=== PATIENT | male | born 1945 | race Caucasian/White ===

== ENCOUNTER → 2016-09-16 | Outpatient (CLI) | payer OTHER ==
[~2016-09-16] MED LIST: AMOX875T PO; FLAX1CAP11 PO; MULT-1093 PO; OMEG10007 PO
[2016-09-16 13:34] LABS: ESTIMATED AVERAGE GLUCOSE 143 mg/dl; HA1C FLAG Normal (Normal)
[2016-09-16 14:45] LABS: BLOOD UREA NITROGEN 12 mg/dl (7-18); BUN/CREATININE RATIO 14.9 (10-20); CARBON DIOXIDE 27 mmol/L (21-32); CHLORIDE 105 mmol/L (98-107); CHOLESTEROL 152 mg/dl (0-200); CREATININE 0.81 mg/dl (0.60-1.40); GLUCOSE 133 mg/dl (70-99); POTASSIUM 4.1 mmol/L (3.5-5.1); SODIUM 139 mmol/L (136-145); TRIGLYCERIDES 160 mg/dl (0-150); VERY LOW DENSITY LIPOPROT CALC 32 mg/dl
[2016-09-16 14:50] LABS: CHOLESTEROL/HDL RATIO 3.5; HDL CHOLESTEROL 44 mg/dl
[2016-09-16 15:09] LABS: CALCIUM 9.6 mg/dl (8.5-10.1)
== END | disposition home or self-care (01) ==
LOC: C.LABSPEC 12:41
PROVIDERS: ATTEND Internal Medicine
DX: Z00.01 Encounter for general adult medical examination with abnormal findings (principal); E11.65 Type 2 diabetes mellitus with hyperglycemia

== ENCOUNTER → 2016-09-20 | Outpatient (CLI) | payer OTHER ==
[2016-09-20 16:22] LABS: RATIO 310.7 mcg/mg (0-30.0)
== END | disposition home or self-care (01) ==
LOC: C.LABSPEC 14:54
PROVIDERS: ATTEND Internal Medicine
DX: E11.65 Type 2 diabetes mellitus with hyperglycemia (principal)

== ENCOUNTER 2016-12-23 17:33 | Emergency (ER) | payer OTHER ==
[~2016-12-23] VITALS: Ht 190.5 cm; Wt 129.4 kg
[2016-12-23 17:39] VITALS: Ht 190.5 cm; Wt 129.4 kg
[2016-12-23] MEDS ORDERED: CEFTRIAXONE SOD INJ 1 GM ADDVIAL IV STA (17:50)
[2016-12-23 18:25] LABS: BASO % 0.2 %; BASO ABS # 0.03 K/uL (0-0.2); COMPLETE YES; EOS % 0.3 %; HEMATOCRIT 40.8 % (42-52); IG% 0.2 %; LYMPH ABS # 0.48 K/uL (1.2-3.4); MEAN CELL VOLUME 84.6 fL (80-100); MEAN CORPUSCULAR HEMOGLOBIN 31.1 pg (25-34); MEAN CORPUSCULAR HGB CONC 36.8 g/dl (32-36); MONO % 6.4 %; NEUT % 88.9 %; PLATELET COUNT 165 K/uL (130-400); RED BLOOD COUNT 4.82 M/uL (4.7-6.1); WHITE BLOOD COUNT 12.12 K/uL (4.8-10.8)
[2016-12-23 18:41] LABS: BUN/CREATININE RATIO 12.7 (10-20); CALCIUM 9.4 mg/dl (8.5-10.1); CREATININE 0.92 mg/dl (0.60-1.40); POTASSIUM 3.6 mmol/L (3.5-5.1)
--- NOTE | 2016-12-23 18:41 | DIAGNOSTIC IMAGING REPORT ---
RIGHT LOWER EXTREMITY VENOUS DOPPLER HISTORY: Right leg swelling. COMPARISON STUDY: None. FINDINGS: There is normal compressibility, flow, and augmentation within the right lower extremity deep venous system. Prominent right inguinal lymph nodes. Dominant lymph node measures 4.8 x 1.6 cm. However, these demonstrate a thin cortex and normal fatty hilum. IMPRESSION: No DVT within the right lower extremity. Prominent right inguinal lymph nodes. Dominant lymph node measures 4.8 x 1.6 cm. However, these demonstrate a thin cortex and normal fatty hilum. Therefore, these favor benign lymph nodes. Electronically signed by: Kash Hammer M.D. 12/23/2016 6:39 PM Dictated Date/Time: 12/23/2016 6:38 PM
[2016-12-23 19:09] VITALS: TEMP 37.4
[2016-12-23] MEDS ORDERED: MULT-1093 PO (19:23)
[2016-12-23] MEDS ORDERED: FLAX1CAP11 PO (19:23)
[2016-12-23] MEDS ORDERED: OMEG10007 PO (19:23)
[2016-12-23] MEDS ORDERED: AMOX875T PO (19:47)
[2016-12-23] MEDS ORDERED: ACETAMINOPHEN 500 MG TAB PO ONE (19:48)
[2016-12-23 19:55] VITALS: BP 156/88; PULSE 113; O2SAT 96
[2016-12-23] MEDS ORDERED: AMOXICILLIN/CLAVULANATE TAB 875 MG TAB PO ONE (20:00)
--- NOTE | 2016-12-23 21:42 | EMERGENCY ROOM VISIT NOTE ---
History Report prepared by Nneka: Pete Regan Under the Supervision of: Dr. Mike Babb M.D. First contact with patient: 17:40 Chief Complaint: FEVER Stated Complaint: FEVERISH,JUST GOT OVER CELLUITIS History of Present Illness The patient is a 71 year old male who presents to the Emergency Room with complaints of a persistent feeling of being feverish that started yesterday. He says that he had 2 bouts of right lower leg cellulitis, the first one being in July, and the second one being last month. The patient states that he was treated in the [facility] for 3 days during the first bout, and was treated with IV bags. He says that he was treated by his primary care physician during the second bout, and was given a round of Keflex. The patient notes that he has not noticed quite as much improvement with the Keflex as much as he did from the IV bags. He says that he felt great 2 days ago, but yesterday, he started feeling fatigued and feverish. The patient adds that his right leg is starting to get more red and a bit more swollen again. He says that he has had minimal intermittent stinging around the cellulitic area. He adds that he has had some intermittent phlegm in his throat too. Per the nursing staff, the patient's temperature was 98.9 upon arrival, but the patient did take 4 Ibuprofen earlier today. The patient did not take his temperature earlier today. Pt denies LOC, headache, chills, diaphoresis, visual changes, neck pain, chest pain, breathing difficulties, nausea, vomiting, abdominal pain, back pain , melena, hematochezia, urinary symptoms, numbness, weakness, lymphadenopathy, or other complaints. Source of History: patient, nursing staff Onset: Yesterday Position: other (global - feeling feverish) Symptom Intensity: 98.9 upon arrival Timing: other (persistent) Associated Symptoms: + fatigue Note: Associated symptoms: Right lower leg redness, swelling, and bit of stinging. Intermittent phlegm in throat. Review of Systems See HPI for pertinent positives and negatives. A total of ten systems were reviewed and were otherwise negative. Past Medical & Surgical Medical Problems: (1) Cellulitis (2) Cellulitis of leg, right (3) Diabetes Family History Cancer Hypertension Social History Smoking Status: Former Smoker Marital Status: Housing Status: lives with family Occupation Status: retired Current/Historical Medications Scheduled Amoxicillin & Pot Clavulanate (Augmentin 875-125 mg), 875 MG PO BID Fish Oil (Wellington-3), 1 CAP PO DAILY Flaxseed (Linseed) (Flax Seed Oil), 1 CAP PO DAILY Multiple Vitamins W/ Minerals (Centrum Silver 50+Men), 1 TAB PO DAILY Allergies Coded Allergies: No Known Allergies (Unverified , 12/23/16) Physical Exam Vital Signs Date Time Temp Pulse Resp B/P (MAP) Pulse Ox O2 Delivery O2 Flow Rate FiO2 12/23/16 19:55 113 18 156/88 96 Room Air 12/23/16 19:09 37.4 12/23/16 18:50 109 20 173/84 96 Room Air 12/23/16 17:39 37.2 126 20 194/93 97 Room Air Physical Exam GENERAL: Awake, alert, well-appearing, in no distress HENT: Normocephalic, atraumatic. Oropharynx unremarkable. EYES: Normal conjunctiva. Sclera non-icteric. NECK: Supple. No nuchal rigidity. FROM. No JVD. RESPIRATORY: Clear to auscultation. CARDIAC: Regular rate, normal rhythm. Extremities warm and well perfused. Pulses equal. ABDOMEN: Soft, non-distended. No tenderness to palpation. No rebound or guarding. No masses. RECTAL: Deferred. MUSCULOSKELETAL: Chest examination reveals no tenderness. The back is symmetrical on inspection without obvious abnormality. There is no CVA tenderness to palpation. No joint edema. LOWER EXTREMITIES: Right leg is larger than left leg. Right leg is warm, tender , red, and swollen from ankle to below the knee. Equivocal Homans sign on right side. Tinea pedis between the 4th and 5th toe on the right side. NEURO: Normal sensorium. No sensory or motor deficits noted. SKIN: No rash or jaundice noted. Medical Decision & Procedures ER Provider Diagnostic Interpretation: US: Radiology results as stated below per my review and radiologist interpretation RIGHT LOWER EXTREMITY VENOUS DOPPLER HISTORY: Right leg swelling. COMPARISON STUDY: None. FINDINGS: There is normal compressibility, flow, and augmentation within the right lower extremity deep venous system. Prominent right inguinal lymph nodes. Dominant lymph node measures 4.8 x 1.6 cm. However, these demonstrate a thin cortex and normal fatty hilum. IMPRESSION: No DVT within the right lower extremity. Prominent right inguinal lymph nodes. Dominant lymph node measures 4.8 x 1.6 cm. However, these demonstrate a thin cortex and normal fatty hilum. Therefore, these favor benign lymph nodes. Electronically signed by: Kash Hammer M.D. 12/23/2016 6:39 PM Dictated Date/Time: 12/23/2016 6:38 PM Laboratory Results 12/23/16 18:08 Red Blood Count 4.82, Mean Corpuscular Volume 84.6, Mean Corpuscular Hemoglobin 31.1, Mean Corpuscular Hemoglobin Concent 36.8, Mean Platelet Volume 9.0, Neutrophils (%) (Auto) 88.9, Lymphocytes (%) (Auto) 4.0, Monocytes (%) (Auto) 6.4, Eosinophils (%) (Auto) 0.3, Basophils (%) (Auto) 0.2, Neutrophils # (Auto) 10.77, Lymphocytes # (Auto) 0.48, Monocytes # (Auto) 0.77, Eosinophils # (Auto) 0.04, Basophils # (Auto) 0.03 12/23/16 18:08 Test 12/23/16 18:08 12/23/16 18:12 White Blood Count 12.12 K/uL (4.8-10.8) Red Blood Count 4.82 M/uL (4.7-6.1) Hemoglobin 15.0 g/dL (14.0-18.0) Hematocrit 40.8 % (42-52) Mean Corpuscular Volume 84.6 fL (80-100) Mean Corpuscular Hemoglobin 31.1 pg (25-34) Mean Corpuscular Hemoglobin Concent 36.8 g/dl (32-36) Platelet Count 165 K/uL (130-400) Mean Platelet Volume 9.0 fL (7.4-10.4) Neutrophils (%) (Auto) 88.9 % Lymphocytes (%) (Auto) 4.0 % Monocytes (%) (Auto) 6.4 % Eosinophils (%) (Auto) 0.3 % Basophils (%) (Auto) 0.2 % Neutrophils # (Auto) 10.77 K/uL (1.4-6.5) Lymphocytes # (Auto) 0.48 K/uL (1.2-3.4) Monocytes # (Auto) 0.77 K/uL (0.11-0.59) Eosinophils # (Auto) 0.04 K/uL (0-0.5) Basophils # (Auto) 0.03 K/uL (0-0.2) RDW Standard Deviation 40.6 fL (36.4-46.3) RDW Coefficient of Variation 13.2 % (11.5-14.5) Immature Granulocyte % (Auto) 0.2 % Immature Granulocyte # (Auto) 0.03 K/uL (0.00-0.02) Anion Gap 9.0 mmol/L (3-11) Est Creatinine Clear Calc Drug Dose 109.8 ml/min Estimated GFR () 98.0 Estimated GFR (Non- 84.6 BUN/Creatinine Ratio 12.7 (10-20) Calcium Level 9.4 mg/dl (8.5-10.1) Bedside Glucose 151 mg/dl (70-99) Laboratory results reviewed by me Medications Administered Medications (Trade) Dose Ordered Sig/Ned Route Start Time Stop Time Status Last Admin Dose Admin Ceftriaxone Sodium (Rocephin Inj) 1 gm NOW STAT IV 12/23/16 17:50 12/23/16 17:54 DC 12/23/16 17:50 1 GM Amoxicillin/ Clavulanate Potassium (Augmentin Tab) 875 mg ONE ONCE PO 12/23/16 20:00 12/23/16 20:01 DC 12/23/16 19:50 875 MG Acetaminophen (Tylenol Tab) 1,000 mg STK-MED ONCE PO 12/23/16 19:48 12/23/16 19:49 DC 12/23/16 19:50 1,000 MG ED Course 1746: The patient was evaluated in room C3. A complete history and physical exam was performed. 1750: Ordered Rocephin Inj 1 gm IV. 0: I reevaluated the patient and he is back from ultrasound and feels well. 1901: I reevaluated the patient and he is resting comfortably. Discussed results and discharge instructions: he verbalized understanding and agreement. The patient is ready for discharge. Medical Decision Prior records reviewed and summarized as above. Triage Nursing notes reviewed and agree them. Additional history obtained from the family. The patient's history was concerning for swelling and redness of the skin. Differential diagnosis: Etiologies such as cellulitis, DVT, necrotizing fasciitis, abscess, MRSA infection, dermatitis, drug eruption, as well as others were entertained.. Physical examination: The physical examination was consistent with cellulitis ER treatment provided: IV Rocephin Oral Tylenol Diagnostics interpreted by me: The labs revealed a mild leukocytosis on CBC. Chemistry panel revealed mild hyponatremia. Imaging studies: Ultrasound as above This appears to be isolated cellulitis. The patient has had this several times before. I discussed outpatient treatment with close follow-up and the patient was in agreement. He will contact his primary office tomorrow. I will start him on Augmentin. He was given the morning dose and a prescription was sent's pharmacy. If his symptoms worsen he was educated and will come back to the emergency department for reevaluation. I discussed possible admission if that occurs. He indicated his understanding. Family feels comfortable with the plan as well. By the evaluation outlined above emergent etiologies such as abscess, necrotizing fasciitis, DVT, as well as others were deemed relatively unlikely. The patient and family were informed about the findings as listed above. All questions were answered and they were pleased with the treatment. Return instructions were outlined and the patient was discharged in stable condition. Outpatient prescription management: Augmentin Referral: The patient was referred back to his primary care physician for follow-up for a recheck of the current condition. Medication Reconcilliation Current Medication List: was personally reviewed by me Blood Pressure Screening Patient's blood pressure: Elevated blood pressure Blood pressure disposition: Referred to PCP Impression Primary Impression: Cellulitis of leg, right Scribe Attestation The scribe's documentation has been prepared under my direction and personally reviewed by me in its entirety. I confirm that the note above accurately reflects all work, treatment, procedures, and medical decision making performed by me. Departure Information Dispostion Home / Self-Care Prescriptions Amoxicillin & Pot Clavulanate (Augmentin 875-125 mg) 1 Tab Tab 875 MG PO BID for 9 Days, #18 TAB Prov: Mike Babb MD 12/23/16 Referrals Mamadou Gallagher M.D. (PCP) Patient Instructions My [facility] Additional Instructions CELLULITIS INSTRUCTIONS: Amoxicillin Clavulanate (Augmentin) 875mg: Take one pill twice daily for 9 days for your infection. All antibiotics can cause diarrhea. If this occurs and you feel worse or it does not resolve in 1-2 days follow up with your doctor or return to the Emergency Department as this could be signs of serious underlying problems. Any medication can cause an allergic reaction, stop the pills immediately and return to the ER for rash, hives, breathing difficulties, or swelling. Ibuprofen(Motrin, Advil) may be used for fever or pain. Use 600mg every six hours as needed. Take with food. Avoid using more than 2400mg in a 24 hour period. Do not use 2400mg per day for more than three consecutive days without physician direction. Prolonged inappropriate use can lead to stomach upset or ulcers. (AND/OR) Acetaminophen(Tylenol) may be used for fever or pain. Use 1000mg every six hours as needed. Avoid using more than 4000mg in a 24 hour period. Warm compresses to the affected area 4 times daily for 15-20 minutes. Rest and drink plenty of fluids. Continue current medications. Return to the ER for severe pain, persistent fevers, spreading redness, or any worsening of your condition. Follow up with your primary physician tomorrow for a recheck of the current condition. A recheck of your sodium level is important as it was borderline low. Increase salt in your diet this weekend.
== END 2016-12-23 20:00 | disposition home or self-care (01) ==
LOC: C.EDB 17:36 → C.EDC 20:00
DX: L03.115 Cellulitis of right lower limb (principal); E11.9 Type 2 diabetes mellitus without complications; Z80.9 Family history of malignant neoplasm, unspecified; Z82.49 Family history of ischemic heart disease and other diseases of the circulatory system; Z87.891 Personal history of nicotine dependence

== ENCOUNTER → 2017-01-12 | Outpatient (CLI) | payer OTHER ==
[~2017-01-12] MED LIST changes: -AMOX875T PO
[2017-01-12 12:50] LABS: BASO ABS # 0.04 K/uL (0-0.2); COMPLETE YES; EOS % 2.9 %; HEMATOCRIT 43.4 % (42-52); IG% 0.2 %; LYMPH % 29.4 %; LYMPH ABS # 1.22 K/uL (1.2-3.4); MEAN CELL VOLUME 85.4 fL (80-100); MEAN CORPUSCULAR HEMOGLOBIN 31.5 pg (25-34); MEAN CORPUSCULAR HGB CONC 36.9 g/dl (32-36); MEAN PLATELET VOLUME 9.5 fL (7.4-10.4); MONO % 9.9 %; NEUT % 56.6 %; PLATELET COUNT 220 K/uL (130-400); RED BLOOD COUNT 5.08 M/uL (4.7-6.1); WHITE BLOOD COUNT 4.15 K/uL (4.8-10.8)
[2017-01-12 12:59] LABS: BLOOD UREA NITROGEN 7 mg/dl (7-18); BUN/CREATININE RATIO 9.5 (10-20); CALCIUM 9.5 mg/dl (8.5-10.1); CARBON DIOXIDE 22 mmol/L (21-32); CHLORIDE 107 mmol/L (98-107); CREATININE 0.73 mg/dl (0.60-1.40); GLUCOSE 136 mg/dl (70-99); POTASSIUM 3.8 mmol/L (3.5-5.1); SODIUM 138 mmol/L (136-145)
[2017-01-12 13:04] LABS: ESTIMATED AVERAGE GLUCOSE 126 mg/dl; HA1C FLAG Normal (Normal)
== END | disposition home or self-care (01) ==
LOC: C.LABSPEC 12:11
PROVIDERS: ATTEND Internal Medicine
DX: L03.116 Cellulitis of left lower limb (principal); E11.9 Type 2 diabetes mellitus without complications

== ENCOUNTER → 2017-11-10 | Outpatient (CLI) | payer OTHER | END | disposition home or self-care (01) | LOC: C.PATHSPEC 17:25 | PROVIDERS: ATTEND Plastic Surgery | DX: L72.11 Pilar cyst (principal) ==